=== PATIENT | male | born 2000 | race Caucasian/White ===

== ENCOUNTER 2021-04-22 16:59 | Emergency (ER) | payer OTHER ==
[~2021-04-22] VITALS: Ht 188 cm; Wt 82.6 kg
[2021-04-22 17:23] VITALS: BP 130/82
== END 2021-04-22 17:54 | disposition home or self-care (01) ==
LOC: ED 17:30
DX: K04.7 Periapical abscess without sinus (principal); K02.9 Dental caries, unspecified
CPT/HCPCS: 99283